=== PATIENT | male | born 1940 | race Caucasian/White ===

== ENCOUNTER → 2016-12-17 | Outpatient (CLI) | payer MEDICARE ==
[~2016-12-17] MED LIST: ASPIR 8181 MG PO; COZAAR100 MG PO; ELIQUIS5 MG PO; FISH OIL OMEGA1 EACH PO; METOPROLOL SUCC25 MG PO; MIRALAX17 GM PO; NITROSTAT0.4 MG SL; TYLENOL325 MG PO; VITAMIN D1000 UNIT PO; ZETIA10 MG PO
== END | disposition home or self-care (01) ==
LOC: RAD.S 10:00
DX: C61 Malignant neoplasm of prostate (principal)